=== PATIENT | female | born 1930 | race Caucasian/White ===

== ENCOUNTER 2017-03-15 18:47 | Emergency (ER) | payer MEDICARE ==
[~2017-03-15] VITALS: Ht 152.4 cm; Wt 51.0 kg
[~2017-03-15 18:47] MED LIST: ACET325T14 PO; ACIPHEX PO; ASPI-496 PO; ASPI325T4 PO; ATEN-104 PO; BUSP10TA PO; CELE200C PO; CELEBREX PO; CHILDRENS BENADRYL PO; CLON0.1T12 PO; DIAZ2TAB PO; DIAZ2TAB3 PO; DIPH1TAB; DIPH1TAB PO; DOCU-30 PO; ESTR1.25; ESTR1.25 PO; FLUT9.9S NS; HYDR-3138 PO; HYDR-3240 PO; HYDR-3341 PO; HYDR-3342 PO; HYDR12.53 PO; HYDR25TA6 PO; LACT1CAP37 PO; LISI-167 PO; LISI-170 PO; LORA10TA3 PO; MULT-717 PO; PHEN51GE TP; PHYT100T PO; RABE20TA5 PO; TYLENOL PO; VITAMIN B12 IM
[2017-03-15] MEDS ORDERED: SODIUM CHLORIDE FLUSH 10ML SYR IVF ONE (19:00)
[2017-03-15] MEDS ORDERED: PROPOFOL 10 MG/ML, 20ML ONE (20:18)
[2017-03-15] MEDS ORDERED: PROPOFOL 10 MG/ML, 20ML IVPush ONE (21:00)
[2017-03-15 22:49] VITALS: BP 142/64
== END 2017-03-15 22:51 | disposition home or self-care (01) ==
LOC: ED 21:35
DX: S73.015A Posterior dislocation of left hip, initial encounter (principal); S61.411A Laceration without foreign body of right hand, initial encounter; I10 Essential (primary) hypertension; W01.0XXA Fall on same level from slipping, tripping and stumbling without subsequent striking against object, initial encounter; Y93.89 Activity, other specified; Y92.89 Other specified places as the place of occurrence of the external cause; Y99.9 Unspecified external cause status
CPT/HCPCS: 27250; 72170; 99152; 99153

== ENCOUNTER → 2017-06-04 | Outpatient (CLI) | payer MEDICARE ==
[~2017-06-04] MED LIST changes: +ASPI325T17 PO; -ASPI325T4 PO; +DOCU-131 PO; -DOCU-30 PO; -HYDR-3138 PO; +HYDR-3237 PO; +RABE20TA18 PO; -RABE20TA5 PO
== END | disposition home or self-care (01) ==
LOC: RAD 11:41
PROVIDERS: ATTEND Specialist
DX: R05 Cough (principal)
CPT/HCPCS: 71020

== ENCOUNTER 2017-09-07 05:51 | Inpatient (IN) | payer MEDICARE ==
[~2017-09-07] VITALS: Ht 149.9 cm; Wt 60.0 kg
[2017-09-07] MEDS ORDERED: LOSA25TA5 PO (06:05)
[2017-09-07] MEDS ORDERED: METO25TA35 PO (06:05)
[2017-09-07] MEDS ORDERED: SODIUM CHLORIDE FLUSH 10ML SYR IVF ONE (06:30)
[2017-09-07] MEDS ORDERED: ONDANSETRON 2MG/ML, 2ML IVPush ONE (06:30)
[2017-09-07] MEDS ORDERED: HYDROmorphone 1 MG/ML, 1ML IVPush PRN (06:30)
[2017-09-07] MEDS ORDERED: SODIUM CHLORIDE 0.9% 1,000ML IVBOLUS ONE (06:30)
[2017-09-07] MEDS ORDERED: HYDROmorphone 2 MG/ML, 1ML ONE (06:49)
[2017-09-07] MEDS ORDERED: ONDANSETRON 2MG/ML, 2ML ONE (06:49)
[2017-09-07 06:53] LABS: ALBUMIN 2.9 g/dL (3.4-5.0); ANION GAP 10 mmol/L (5-15); CALCIUM 8.4 mg/dL (8.5-10.1); CHLORIDE 109 mmol/L (98-107); CREATININE 1.39 mg/dL (0.55-1.02)
[2017-09-07 06:54] LABS: BASOPHILS # (AUTO) 0.03 x10^3/uL (0-0.1); BASOPHILS % (AUTO) 0 % (0-1); EOSINOPHILS # (AUTO) 0.41 x10^3/uL (0-0.4); EOSINOPHILS % (AUTO) 4 % (1-7); LYMPHOCYTES # (AUTO) 1.38 x10^3/uL (1-3.4); LYMPHOCYTES % (AUTO) 14 % (22-44); MD NO; MEAN CORPUSCULAR HEMOGLOBIN 30.9 pg (27.0-34.8); MEAN CORPUSCULAR HGB CONC 33.6 g/dL (32.4-35.8); MEAN CORPUSCULAR VOLUME 91.9 fL (80-100); MEAN PLATELET VOLUME 8.5 fL (7.4-10.4); MONOCYTES # (AUTO) 0.92 x10^3/uL (0.2-0.8); MONOCYTES % (AUTO) 9 % (2-9); NEUTROPHILS # (AUTO) 7.48 x10^3/uL (1.8-6.8); NEUTROPHILS % (AUTO) 73 % (42-75); PLATELET COUNT 417 x10^3/uL (130-400); RED CELL DISTRIBUTION WIDTH 13.8 % (9.6-15.2)
[2017-09-07] MEDS ORDERED: PROPOFOL 10 MG/ML, 20ML IVPush ONE (07:00)
[2017-09-07] MEDS ORDERED: PROPOFOL 10 MG/ML, 20ML ONE (07:14)
[2017-09-07] MEDS ORDERED: MORPHINE SULFATE 4 MG/ML, 1ML ONE (07:38)
[2017-09-07 11:28] LABS: CULTURE INDICATED? YES; MICROSCOPIC INDICATED
[2017-09-07] MEDS ORDERED: LOVA10TA PO (14:35)
[2017-09-07] MEDS: SODIUM CHLORIDE 0.9% 1,000 ML IV SCH (14:38)
[2017-09-07] MEDS ORDERED: ONDANSETRON 2MG/ML, 2ML IVPush PRN (15:00)
[2017-09-07] MEDS ORDERED: ONDANSETRON ODT 4 MG PO PRN (15:00)
[2017-09-07] MEDS ORDERED: DIPHENOXYLATE/ATROPINE TABLET PO PRN (15:00)
[2017-09-07] MEDS ORDERED: ACETAMINOPHEN 325 MG TABLET PO PRN (15:00)
[2017-09-07] MEDS ORDERED: FLUTICASONE NASAL SPRAY 16GM NAS SCH (18:30)
[2017-09-07] MEDS: SIMVASTATIN 5 MG TABLET PO SCH (20:44)
[2017-09-07] MEDS: LISINOPRIL 20 MG TABLET PO SCH (20:45)
[2017-09-07] MEDS: METOPROLOL TARTRATE 25 MG TABLET PO SCH (20:45)
[2017-09-07 21:00] VITALS: BP 160/52
[2017-09-07] MEDS ORDERED: DIPHENHYDRAMINE 12.5MG/5ML, 10ML UDC PO PRN (22:00)
[2017-09-08] MEDS ORDERED: hydrALAzine 20 MG/ML, 1ML ONE ×2 (02:12→17:47)
[2017-09-08] MEDS ORDERED: hydrALAzine 20 MG/ML, 1ML IV ONE (02:30)
[2017-09-08 02:59] VITALS: BP 178/60
[2017-09-08 05:53] LABS: INTERNATIONAL NORMALIZED RATIO 0.95 (0.93-1.1); PROTHROMBIN TIME 9.9 Seconds (9.6-11.5)
[2017-09-08 05:59] LABS: BASOPHILS # (AUTO) 0.07 x10^3/uL (0-0.1); BASOPHILS % (AUTO) 1 % (0-1); EOSINOPHILS # (AUTO) 0.36 x10^3/uL (0-0.4); EOSINOPHILS % (AUTO) 4 % (1-7); LYMPHOCYTES # (AUTO) 1.53 x10^3/uL (1-3.4); LYMPHOCYTES % (AUTO) 19 % (22-44); MD NO; MEAN CORPUSCULAR HEMOGLOBIN 31.2 pg (27.0-34.8); MEAN CORPUSCULAR HGB CONC 33.7 g/dL (32.4-35.8); MEAN CORPUSCULAR VOLUME 92.6 fL (80-100); MEAN PLATELET VOLUME 8.1 fL (7.4-10.4); MONOCYTES # (AUTO) 0.77 x10^3/uL (0.2-0.8); MONOCYTES % (AUTO) 9 % (2-9); NEUTROPHILS # (AUTO) 5.47 x10^3/uL (1.8-6.8); NEUTROPHILS % (AUTO) 67 % (42-75); PLATELET COUNT 374 x10^3/uL (130-400); RED BLOOD COUNT 2.88 x10^6/uL (3.82-5.3); RED CELL DISTRIBUTION WIDTH 13.7 % (9.6-15.2)
[2017-09-08 06:03] LABS: CHLORIDE 113 mmol/L (98-107)
[2017-09-08 06:21] LABS: ALANINE AMINOTRANSFERASE 10 U/L (12-78); ALBUMIN 2.3 g/dL (3.4-5.0); ALKALINE PHOSPHATASE 79 U/L (45-117); ANION GAP 7 mmol/L (5-15); BILIRUBIN,TOTAL 0.2 mg/dL (0.2-1.0); CALCIUM 7.9 mg/dL (8.5-10.1); CREATININE 1.15 mg/dL (0.55-1.02); TOTAL PROTEIN 5.9 g/dL (6.4-8.2)
[2017-09-08 06:48] VITALS: BP 176/79
[2017-09-08] MEDS: LISINOPRIL 20 MG TABLET PO SCH (08:54)
[2017-09-08] MEDS: METOPROLOL TARTRATE 25 MG TABLET PO SCH ×2 (08:54→21:38)
[2017-09-08] MEDS ORDERED: DIAZEPAM 2 MG TABLET PO SCH (09:00)
[2017-09-08] MEDS ORDERED: ESTROGENS CONJUGATED 0.625 MG TABLET PO SCH (09:00)
[2017-09-08] MEDS ORDERED: HYDROCHLOROTHIAZIDE 25 MG TABLET PO SCH (09:00)
[2017-09-08 12:20] VITALS: BP 152/73
[2017-09-08] MEDS ORDERED: DIPHENHYDRAMINE 50 MG/ML, 1ML IVPush ONE (13:00)
[2017-09-08] MEDS ORDERED: TRANEXAMIC ACID 100 MG/ML, 10ML ONE ×2 (13:33)
[2017-09-08] MEDS ORDERED: KETOROLAC 60 MG/2 ML ONE (13:33)
[2017-09-08] MEDS ORDERED: SODIUM CHLORIDE 0.9% 100 ML ONE (13:34)
[2017-09-08] MEDS ORDERED: EPINEPHRINE 1 MG/ML, 1ML ONE (13:34)
[2017-09-08] MEDS ORDERED: ROPIvacaine/PF 0.2%, 20 ML ONE (13:34)
[2017-09-08] MEDS ORDERED: FENTANYL PF 100 MCG/2ML ONE ×3 (13:56→17:11)
[2017-09-08] MEDS ORDERED: CEFAZOLIN 1,000 MG ONE (13:59)
[2017-09-08] MEDS ORDERED: GLYCOPYRROLATE 0.2MG/1ML, 5ML ONE (13:59)
[2017-09-08] MEDS ORDERED: ROCURONIUM 10 MG/ML,10ML ONE (13:59)
[2017-09-08] MEDS ORDERED: SUCCINYLCHOLINE 20 MG/ML, 10ML ONE (13:59)
[2017-09-08] MEDS ORDERED: NEOSTIGMINE 1 MG/ML, 10ML ONE (13:59)
[2017-09-08] MEDS ORDERED: DEXAMETHASONE 4 MG/ML, 1ML ONE (13:59)
[2017-09-08] MEDS ORDERED: PROPOFOL 10 MG/ML, 20ML ONE (13:59)
[2017-09-08] MEDS ORDERED: ONDANSETRON 2MG/ML, 2ML ONE (13:59)
[2017-09-08] MEDS ORDERED: ONDANSETRON 2MG/ML, 2ML IV PRN (15:00)
[2017-09-08] MEDS ORDERED: BISACODYL 10 MG SUPP PR PRN (15:00)
[2017-09-08] MEDS ORDERED: MAGNESIUM HYDROXIDE 8%, 30ML UDC PO PRN (15:00)
[2017-09-08] MEDS ORDERED: PROMETHAZINE 25 MG/ML, 1ML IM PRN (15:00)
[2017-09-08] MEDS ORDERED: DIPHENHYDRAMINE 50 MG CAPSULE PO PRN (15:00)
[2017-09-08] MEDS ORDERED: OXYcodone IR 5MG TABLET PO PRN (15:00)
[2017-09-08] MEDS ORDERED: HYDROmorphone 1 MG/ML, 1ML IV PRN ×2 (15:00→16:00)
[2017-09-08] MEDS ORDERED: ALUMINUM/MAG/SIMETHICONE 30 ML UDC PO PRN (15:00)
[2017-09-08] MEDS ORDERED: LORazepam 1MG TABLET PO PRN (15:00)
[2017-09-08] MEDS ORDERED: ONDANSETRON 4 MG TABLET PO PRN (15:00)
[2017-09-08] MEDS ORDERED: PROMETHAZINE 12.5 MG SUPP PR PRN (15:00)
[2017-09-08] MEDS ORDERED: SENNA/DOCUSATE TABLET PO PRN (15:00)
[2017-09-08] MEDS ORDERED: ALBUTEROL SULFATE 2.5 MG/3 ML NPPB PRN (16:00)
[2017-09-08] MEDS ORDERED: DIAZEPAM 5 MG/ML, 2ML IVPush PRN (16:00)
[2017-09-08] MEDS ORDERED: HYDROcodone/APAP 7.5-325MG/15ML UDC PO PRN (16:00)
[2017-09-08] MEDS ORDERED: MIDAZOLAM 1 MG/ML, 2ML IV PRN (16:00)
[2017-09-08] MEDS ORDERED: hydrALAzine 20 MG/ML, 1ML IV PRN (16:00)
[2017-09-08] MEDS ORDERED: ONDANSETRON 2MG/ML, 2ML IVPush PRN (16:00)
[2017-09-08] MEDS ORDERED: METOPROLOL 1 MG/ML, 5ML IV PRN (16:00)
[2017-09-08] MEDS ORDERED: LABETALOL 5MG/ML, 20ML IV PRN (16:00)
[2017-09-08] MEDS ORDERED: EPHEDRINE 50 MG/ML, 1ML IVPush PRN (16:00)
[2017-09-08] MEDS ORDERED: ACETAMINOPHEN 325 MG TABLET PO PRN (16:00)
[2017-09-08] MEDS ORDERED: PROMETHAZINE 25 MG/ML, 1ML IV PRN (16:00)
[2017-09-08] MEDS ORDERED: OXYcodone 5 MG/5 ML ORAL.SOL UDC ONE (17:11)
[2017-09-08] MEDS: FENTANYL PF 100 MCG/2ML IV PRN ×3 (17:26→18:16)
[2017-09-08] MEDS: OXYcodone 5 MG/5 ML ORAL.SOL UDC PO PRN ×2 (17:26→18:16)
[2017-09-08] MEDS ORDERED: TRANEXAMIC ACID 1,000 MG in SODIUM CHLORIDE 0.9% 100 ML IVPB ONE (17:30)
[2017-09-08] MEDS: SODIUM CHLORIDE 0.9% 1,000 ML IV SCH (17:48)
[2017-09-08] MEDS: D5%-0.45% NACL 1,000 ML IV SCH (18:36)
[2017-09-08 18:42] VITALS: BP 162/70
[2017-09-08] MEDS: DOCUSATE 100 MG CAPSULE PO SCH (21:37)
[2017-09-08] MEDS: SIMVASTATIN 5 MG TABLET PO SCH (21:38)
[2017-09-08] MEDS: ACETAMINOPHEN 325 MG TABLET PO PRN (21:39)
[2017-09-08] MEDS: CEFAZOLIN PMX 1GM/50ML 50 ML IVPB SCH (22:54)
[2017-09-09 00:02] VITALS: BP 150/71
[2017-09-09] MEDS: CEFAZOLIN PMX 1GM/50ML 50 ML IVPB SCH (01:00)
[2017-09-09 03:01] VITALS: BP 152/70
[2017-09-09 06:11] LABS: CALCIUM 7.2 mg/dL (8.5-10.1); CHLORIDE 112 mmol/L (98-107)
[2017-09-09 06:14] LABS: ALBUMIN 2.1 g/dL (3.4-5.0); ANION GAP 11 mmol/L (5-15); CREATININE 1.48 mg/dL (0.55-1.02)
[2017-09-09] MEDS: ASPIRIN 81 MG TABLET EC PO SCH (06:28)
[2017-09-09] MEDS: D5%-0.45% NACL 1,000 ML IV SCH ×2 (06:37→17:33)
[2017-09-09] MEDS ORDERED: CEFAZOLIN PMX 1GM/50ML 50 ML IVPB SCH (07:00)
[2017-09-09 07:57] VITALS: BP_SYST 194; BP_SYST 201; BP_DIAS 69; BP_DIAS 75
[2017-09-09] MEDS: DOCUSATE 100 MG CAPSULE PO SCH ×2 (08:22→21:12)
[2017-09-09] MEDS: METOPROLOL TARTRATE 25 MG TABLET PO SCH ×2 (08:22→21:13)
[2017-09-09] MEDS: HYDROCHLOROTHIAZIDE 25 MG TABLET PO SCH (08:23)
[2017-09-09] MEDS ORDERED: DIAZEPAM 2 MG TABLET PO PRN (09:00)
[2017-09-09 09:38] VITALS: BP 191/67
[2017-09-09] MEDS: LISINOPRIL 20 MG TABLET PO SCH ×2 (09:39→21:13)
[2017-09-09 12:12] VITALS: BP 170/69
[2017-09-09 19:53] VITALS: BP 137/72
[2017-09-09] MEDS: ACETAMINOPHEN 325 MG TABLET PO PRN (21:12)
[2017-09-09] MEDS: SIMVASTATIN 5 MG TABLET PO SCH (21:13)
[2017-09-10] MEDS ORDERED: ACETAMINOPHEN 325 MG TABLET PO PRN (03:30)
[2017-09-10 04:11] VITALS: BP 181/76
[2017-09-10] MEDS: D5%-0.45% NACL 1,000 ML IV SCH (04:51)
[2017-09-10] MEDS: ASPIRIN 81 MG TABLET EC PO SCH (06:00)
[2017-09-10 06:39] VITALS: BP 197/81
[2017-09-10] MEDS: HYDROCHLOROTHIAZIDE 25 MG TABLET PO SCH (08:58)
[2017-09-10] MEDS: METOPROLOL TARTRATE 25 MG TABLET PO SCH (08:58)
[2017-09-10] MEDS: DOCUSATE 100 MG CAPSULE PO SCH (08:59)
[2017-09-10] MEDS: LISINOPRIL 20 MG TABLET PO SCH (08:59)
[2017-09-10] MEDS ORDERED: LISINOPRIL 20 MG TABLET PO SCH (09:00)
[2017-09-10] MEDS ORDERED: DIPHENHYDRAMINE 25 MG CAPSULE ONE (10:40)
[2017-09-10 12:39] VITALS: BP 161/76
[2017-09-10] MEDS ORDERED: ACET325T14 PO (12:57)
[2017-09-10] MEDS ORDERED: ASPI-621 PO (12:57)
[2017-09-10] MEDS ORDERED: DOCU-131 PO (12:57)
[2017-09-10] MEDS ORDERED: CELE200C PO (12:57)
== END 2017-09-10 15:52 | disposition home or self-care (01) | DRG 467 ==
LOC: ED 07:57 → EDIP 12:08 → 4NOR 18:18
PROVIDERS: ADMIT Family Medicine; ATTEND Family Medicine
PROC: 0T9B70Z Drainage of Bladder with Drainage Device, Via Natural or Artificial Opening (ICD-10-PCS; 2017-09-07)
PROC: 0SPB0JZ Removal of Synthetic Substitute from Left Hip Joint, Open Approach (ICD-10-PCS; 2017-09-08)
PROC: 0SRB0J9 Replacement of Left Hip Joint with Synthetic Substitute, Cemented, Open Approach (ICD-10-PCS; principal; 2017-09-08 14:30)
DX: T84.021A Dislocation of internal left hip prosthesis, initial encounter (principal); E44.1 Mild protein-calorie malnutrition; D64.9 Anemia, unspecified; I13.10 Hypertensive heart and chronic kidney disease without heart failure, with stage 1 through stage 4 chronic kidney disease, or unspecified chronic kidney disease; D72.829 Elevated white blood cell count, unspecified; E78.5 Hyperlipidemia, unspecified; Z96.641 Presence of right artificial hip joint; G89.29 Other chronic pain; K58.9 Irritable bowel syndrome, unspecified; N18.9 Chronic kidney disease, unspecified; Y79.2 Prosthetic and other implants, materials and accessory orthopedic devices associated with adverse incidents; Z79.82 Long term (current) use of aspirin; Z82.49 Family history of ischemic heart disease and other diseases of the circulatory system; Z87.81 Personal history of (healed) traumatic fracture; Z87.891 Personal history of nicotine dependence; Z90.710 Acquired absence of both cervix and uterus; Z68.26 Body mass index [BMI] 26.0-26.9, adult; Z88.2 Allergy status to sulfonamides
CPT/HCPCS: 36415; 71045; 80048; 80053; 81001; 82040; 85018; 85025; 85610; 87077; 87086; 87106; 87186; 93005; C1713; J0171; J0690; J1100; J1170; J1885; J2405; J2704; J2710; J2795; J3010; J3490; C1776; J0330; J0360; J1200; J7030

== ENCOUNTER 2017-11-27 09:29 | Inpatient (IN) | payer MEDICARE ==
[~2017-11-27] VITALS: Ht 152.4 cm; Wt 52.5 kg
[2017-11-27] VITALS (9 sets, daily range): BP systolic 106–220; BP diastolic 45–69
[~2017-11-27 09:29] MED LIST changes: +ASPI-621 PO; +LOSA25TA5 PO; +LOVA10TA PO; +METO25TA35 PO
[2017-11-27] MEDS ORDERED: hydrALAzine 20 MG/ML, 1ML IV ONE (10:00)
[2017-11-27] MEDS ORDERED: SODIUM CHLORIDE FLUSH 10ML SYR IVF ONE (10:00)
[2017-11-27] MEDS ORDERED: RABE20TA18 MT (10:04)
[2017-11-27 10:13] LABS: BASOPHILS # (AUTO) 0.12 x10^3/uL (0-0.1); BASOPHILS % (AUTO) 1 % (0-1); EOSINOPHILS # (AUTO) 0.27 x10^3/uL (0-0.4); EOSINOPHILS % (AUTO) 2 % (1-7); LYMPHOCYTES # (AUTO) 1.89 x10^3/uL (1-3.4); LYMPHOCYTES % (AUTO) 15 % (22-44); MD NO; MEAN CORPUSCULAR HEMOGLOBIN 29.7 pg (27.0-34.8); MEAN CORPUSCULAR HGB CONC 32.6 g/dL (32.4-35.8); MEAN CORPUSCULAR VOLUME 91.3 fL (80-100); MEAN PLATELET VOLUME 9.1 fL (7.4-10.4); MONOCYTES # (AUTO) 1.04 x10^3/uL (0.2-0.8); MONOCYTES % (AUTO) 8 % (2-9); NEUTROPHILS # (AUTO) 9.74 x10^3/uL (1.8-6.8); NEUTROPHILS % (AUTO) 75 % (42-75); PLATELET COUNT 539 x10^3/uL (130-400); RED BLOOD COUNT 4.19 x10^6/uL (3.82-5.3); RED CELL DISTRIBUTION WIDTH 14.4 % (9.6-15.2)
[2017-11-27 10:22] LABS: INTERNATIONAL NORMALIZED RATIO 1.01 (0.93-1.1); PROTHROMBIN TIME 10.5 Seconds (9.6-11.5)
[2017-11-27 10:26] LABS: ALANINE AMINOTRANSFERASE 14 U/L (12-78); ALBUMIN 3.9 g/dL (3.4-5.0); ANION GAP 12 mmol/L (5-15); CALCIUM 9.3 mg/dL (8.5-10.1); CHLORIDE 105 mmol/L (98-107); CREATININE 1.84 mg/dL (0.55-1.02)
[2017-11-27 10:30] LABS: ALKALINE PHOSPHATASE 78 U/L (45-117); BILIRUBIN,TOTAL 0.4 mg/dL (0.2-1.0); TOTAL PROTEIN 8.2 g/dL (6.4-8.2); TROPONIN I < 0.015 ng/mL (0.000-0.045)
[2017-11-27] MEDS ORDERED: SODIUM CHLORIDE 0.9% 1,000 ML IV SCH (13:40)
[2017-11-27] MEDS ORDERED: DOCUSATE 100 MG CAPSULE PO PRN (14:00)
[2017-11-27] MEDS ORDERED: FLUTICASONE NASAL SPRAY 16GM NAS PRN (14:00)
[2017-11-27] MEDS ORDERED: ONDANSETRON ODT 4 MG PO PRN (14:00)
[2017-11-27] MEDS: HEPARIN 5,000 UNITS/ML, 1ML SQ SCH ×2 (14:39→22:06)
[2017-11-27 16:41] LABS: TROPONIN I < 0.015 ng/mL (0.000-0.045)
[2017-11-27] MEDS: hydrALAzine 20 MG/ML, 1ML IVPush PRN (18:38)
[2017-11-27] MEDS: LOVASTATIN 10 MG TABLET PO SCH (21:53)
[2017-11-27] MEDS: LISINOPRIL 20 MG TABLET PO SCH (22:07)
[2017-11-27 22:34] LABS: TROPONIN I < 0.015 ng/mL (0.000-0.045)
[2017-11-28] VITALS (9 sets, daily range): BP systolic 119–230; BP diastolic 46–65
[2017-11-28] MEDS: ASPIRIN 325 MG TABLET EC PO SCH (04:52)
[2017-11-28] MEDS: HEPARIN 5,000 UNITS/ML, 1ML SQ SCH ×3 (04:52→21:44)
[2017-11-28 05:39] LABS: ANION GAP 10 mmol/L (5-15); CALCIUM 8.2 mg/dL (8.5-10.1); CHLORIDE 110 mmol/L (98-107)
[2017-11-28 05:41] LABS: CREATININE 1.62 mg/dL (0.55-1.02)
[2017-11-28 05:54] LABS: BASOPHILS # (AUTO) 0.12 x10^3/uL (0-0.1); BASOPHILS % (AUTO) 2 % (0-1); EOSINOPHILS # (AUTO) 0.62 x10^3/uL (0-0.4); EOSINOPHILS % (AUTO) 8 % (1-7); LYMPHOCYTES # (AUTO) 2.09 x10^3/uL (1-3.4); LYMPHOCYTES % (AUTO) 27 % (22-44); MD NO; MEAN CORPUSCULAR HEMOGLOBIN 30.7 pg (27.0-34.8); MEAN CORPUSCULAR HGB CONC 33.3 g/dL (32.4-35.8); MEAN CORPUSCULAR VOLUME 92.2 fL (80-100); MEAN PLATELET VOLUME 9.1 fL (7.4-10.4); MONOCYTES # (AUTO) 0.82 x10^3/uL (0.2-0.8); MONOCYTES % (AUTO) 11 % (2-9); NEUTROPHILS # (AUTO) 3.98 x10^3/uL (1.8-6.8); NEUTROPHILS % (AUTO) 52 % (42-75); PLATELET COUNT 366 x10^3/uL (130-400); RED BLOOD COUNT 3.44 x10^6/uL (3.82-5.3); RED CELL DISTRIBUTION WIDTH 14.5 % (9.6-15.2)
[2017-11-28] MEDS: PANTOPROZOLE 40MG TABLET PO SCH (07:55)
[2017-11-28] MEDS: LISINOPRIL 20 MG TABLET PO SCH ×2 (07:55→21:43)
[2017-11-28] MEDS: hydrALAzine 20 MG/ML, 1ML IVPush PRN ×2 (10:49→18:31)
[2017-11-28] MEDS: ENALAPRILAT 1.25 MG/ML, 2ML IV PRN (15:41)
[2017-11-28] MEDS: LOVASTATIN 10 MG TABLET PO SCH (21:43)
[2017-11-28] MEDS: ACETAMINOPHEN 325 MG TABLET PO PRN (21:52)
[2017-11-29 01:40] VITALS: BP 129/55
[2017-11-29] MEDS: ACETAMINOPHEN 325 MG TABLET PO PRN ×2 (03:06→21:20)
[2017-11-29 05:37] LABS: BASOPHILS % (AUTO) 1 % (0-1); EOSINOPHILS # (AUTO) 0.24 x10^3/uL (0-0.4); EOSINOPHILS % (AUTO) 3 % (1-7); INTERNATIONAL NORMALIZED RATIO 1.02 (0.93-1.1); LYMPHOCYTES # (AUTO) 1.63 x10^3/uL (1-3.4); LYMPHOCYTES % (AUTO) 21 % (22-44); MD NO; MEAN CORPUSCULAR VOLUME 90.9 fL (80-100); MEAN PLATELET VOLUME 9.1 fL (7.4-10.4); MONOCYTES # (AUTO) 0.91 x10^3/uL (0.2-0.8); MONOCYTES % (AUTO) 12 % (2-9); NEUTROPHILS # (AUTO) 5.05 x10^3/uL (1.8-6.8); NEUTROPHILS % (AUTO) 64 % (42-75); PLATELET COUNT 430 x10^3/uL (130-400); PROTHROMBIN TIME 10.5 Seconds (9.6-11.5); RED BLOOD COUNT 3.84 x10^6/uL (3.82-5.3); RED CELL DISTRIBUTION WIDTH 14.5 % (9.6-15.2)
[2017-11-29 05:45] LABS: CHLORIDE 110 mmol/L (98-107)
[2017-11-29 05:54] LABS: ANION GAP 13 mmol/L (5-15); CALCIUM 8.2 mg/dL (8.5-10.1); CREATININE 1.92 mg/dL (0.55-1.02)
[2017-11-29] MEDS: ASPIRIN 325 MG TABLET EC PO SCH (05:55)
[2017-11-29 07:40] VITALS: BP 222/64
[2017-11-29] MEDS: PANTOPROZOLE 40MG TABLET PO SCH (08:03)
[2017-11-29] MEDS: LISINOPRIL 20 MG TABLET PO SCH (08:03)
[2017-11-29] MEDS: HEPARIN 5,000 UNITS/ML, 1ML SQ SCH (08:05)
[2017-11-29] MEDS ORDERED: AMLODIPINE 5 MG TABLET PO SCH (09:00)
[2017-11-29] MEDS ORDERED: CEFAZOLIN PMX 1GM/50ML 50 ML IVPB ONE (09:00)
[2017-11-29 11:05] VITALS: BP 153/51
[2017-11-29 14:16] VITALS: BP 143/51
[2017-11-29] MEDS ORDERED: BISACODYL 10 MG SUPP PR PRN (16:00)
[2017-11-29] MEDS ORDERED: SODIUM CHLORIDE 0.9% 500 ML IV SCH (16:30)
[2017-11-29 21:19] VITALS: BP 202/45
[2017-11-29] MEDS: LOVASTATIN 10 MG TABLET PO SCH (21:20)
[2017-11-29 22:56] VITALS: BP 93/45
[2017-11-30 01:28] VITALS: BP 158/60
[2017-11-30] MEDS: ACETAMINOPHEN 325 MG TABLET PO PRN (04:37)
[2017-11-30 04:54] LABS: MEAN CORPUSCULAR HEMOGLOBIN 29.9 pg (27.0-34.8); MEAN CORPUSCULAR HGB CONC 32.7 g/dL (32.4-35.8); MEAN CORPUSCULAR VOLUME 91.5 fL (80-100); PLATELET COUNT 356 x10^3/uL (130-400); RED BLOOD COUNT 3.36 x10^6/uL (3.82-5.3); RED CELL DISTRIBUTION WIDTH 14.8 % (9.6-15.2)
[2017-11-30 04:55] LABS: INTERNATIONAL NORMALIZED RATIO 1.04 (0.93-1.1); PROTHROMBIN TIME 10.7 Seconds (9.6-11.5)
[2017-11-30 05:01] LABS: ANION GAP 10 mmol/L (5-15); CALCIUM 7.9 mg/dL (8.5-10.1); CHLORIDE 109 mmol/L (98-107); CREATININE 1.92 mg/dL (0.55-1.02)
[2017-11-30 05:14] LABS: BASOPHILS # (AUTO) 0.08 x10^3/uL (0-0.1); BASOPHILS % (AUTO) 2 % (0-1); EOSINOPHILS # (AUTO) 0.57 x10^3/uL (0-0.4); EOSINOPHILS % (AUTO) 10 % (1-7); LYMPHOCYTES % (AUTO) 26 % (22-44); MD SCAN; MONOCYTES # (AUTO) 0.76 x10^3/uL (0.2-0.8); MONOCYTES % (AUTO) 13 % (2-9); NEUTROPHILS # (AUTO) 2.77 x10^3/uL (1.8-6.8); NEUTROPHILS % (AUTO) 49 % (42-75)
[2017-11-30] MEDS ORDERED: SODIUM CHLORIDE 0.9% 1,000 ML IV SCH ×2 (06:00→13:00)
[2017-11-30] MEDS: ASPIRIN 325 MG TABLET EC PO SCH (06:14)
[2017-11-30 09:05] VITALS: BP 219/67
[2017-11-30] MEDS ORDERED: MIDAZOLAM 1 MG/ML, 5ML ONE (09:18)
[2017-11-30] MEDS ORDERED: FENTANYL PF 100 MCG/2ML ONE (09:18)
[2017-11-30] MEDS ORDERED: VANCOMYCIN PMX 1GM/200ML 200 ML ONE (09:19)
[2017-11-30] MEDS ORDERED: VANCOMYCIN 500 MG ONE (09:19)
[2017-11-30] MEDS ORDERED: LIDOCAINE-MPF 2% ,5ML ONE (09:19)
[2017-11-30] MEDS: PANTOPROZOLE 40MG TABLET PO SCH (09:21)
[2017-11-30] MEDS ORDERED: ACETAMINOPHEN 325 MG TABLET PO PRN (11:00)
[2017-11-30 14:00] VITALS: BP 104/53
[2017-11-30] MEDS: CEFAZOLIN PMX 1GM/50ML 50 ML IVPB SCH (17:05)
[2017-11-30] MEDS: ENALAPRILAT 1.25 MG/ML, 2ML IV PRN (18:53)
[2017-11-30 20:30] VITALS: BP 187/71
[2017-11-30 21:18] VITALS: BP 171/74
[2017-11-30] MEDS: LOVASTATIN 10 MG TABLET PO SCH (21:19)
[2017-11-30] MEDS: SODIUM CHLORIDE FLUSH 10ML SYR IVF SCH (21:20)
[2017-12-01 01:10] VITALS: BP 181/77
[2017-12-01] MEDS: CEFAZOLIN PMX 1GM/50ML 50 ML IVPB SCH (01:21)
[2017-12-01] MEDS: hydrALAzine 20 MG/ML, 1ML IVPush PRN (01:26)
[2017-12-01 02:30] VITALS: BP 168/74
[2017-12-01] MEDS: ASPIRIN 325 MG TABLET EC PO SCH (04:46)
[2017-12-01 05:28] LABS: CHLORIDE 110 mmol/L (98-107)
[2017-12-01 05:30] LABS: MEAN CORPUSCULAR HEMOGLOBIN 30.2 pg (27.0-34.8); MEAN CORPUSCULAR VOLUME 91.5 fL (80-100); RED BLOOD COUNT 4.12 x10^6/uL (3.82-5.3); RED CELL DISTRIBUTION WIDTH 14.9 % (9.6-15.2)
[2017-12-01 05:34] LABS: ANION GAP 12 mmol/L (5-15); CREATININE 1.67 mg/dL (0.55-1.02)
[2017-12-01 06:50] LABS: BASOPHILS # (AUTO) 0.15 x10^3/uL (0-0.1); BASOPHILS % (AUTO) 1 % (0-1); EOSINOPHILS # (AUTO) 0.63 x10^3/uL (0-0.4); EOSINOPHILS % (AUTO) 6 % (1-7); LYMPHOCYTES # (AUTO) 2.15 x10^3/uL (1-3.4); LYMPHOCYTES % (AUTO) 19 % (22-44); MD SCAN; MEAN PLATELET VOLUME 9.2 fL (7.4-10.4); MONOCYTES # (AUTO) 1.48 x10^3/uL (0.2-0.8); MONOCYTES % (AUTO) 13 % (2-9); NEUTROPHILS # (AUTO) 6.95 x10^3/uL (1.8-6.8); NEUTROPHILS % (AUTO) 61 % (42-75); PLATELET COUNT 497 x10^3/uL (130-400)
[2017-12-01 07:54] VITALS: BP 168/53
[2017-12-01] MEDS ORDERED: DIGOXIN 0.25 MG/ML, 2ML IVPush ONE (08:30)
[2017-12-01] MEDS ORDERED: METOPROLOL TARTRATE 50 MG TABLET PO SCH (08:30)
[2017-12-01] MEDS: PANTOPROZOLE 40MG TABLET PO SCH (09:01)
[2017-12-01] MEDS: SODIUM CHLORIDE FLUSH 10ML SYR IVF SCH (09:02)
[2017-12-01] MEDS ORDERED: DIAZEPAM 2 MG TABLET PO ONE (10:30)
[2017-12-01 13:43] VITALS: BP 192/69
[2017-12-01 15:08] VITALS: BP 184/73
== END 2017-12-01 15:30 | disposition home or self-care (01) | DRG 242 ==
LOC: ED 11:12 → 5SO 11:13 → ED 11:27
PROVIDERS: ADMIT Hospitalist; ATTEND Hospitalist
PROC: 0JH606Z Insertion of Pacemaker, Dual Chamber into Chest Subcutaneous Tissue and Fascia, Open Approach (ICD-10-PCS; principal; 2017-11-27)
PROC: 02H63JZ Insertion of Pacemaker Lead into Right Atrium, Percutaneous Approach (ICD-10-PCS; 2017-11-27)
PROC: 02HK3JZ Insertion of Pacemaker Lead into Right Ventricle, Percutaneous Approach (ICD-10-PCS; 2017-11-27)
DX: I44.2 Atrioventricular block, complete (principal); N17.0 Acute kidney failure with tubular necrosis; I13.10 Hypertensive heart and chronic kidney disease without heart failure, with stage 1 through stage 4 chronic kidney disease, or unspecified chronic kidney disease; N18.3 Chronic kidney disease, stage 3 (moderate); D72.829 Elevated white blood cell count, unspecified; K21.9 Gastro-esophageal reflux disease without esophagitis; J30.9 Allergic rhinitis, unspecified; K58.9 Irritable bowel syndrome, unspecified; E78.00 Pure hypercholesterolemia, unspecified; E78.5 Hyperlipidemia, unspecified; R79.89 Other specified abnormal findings of blood chemistry; Z60.2 Problems related to living alone; E86.0 Dehydration; Z96.649 Presence of unspecified artificial hip joint; Z66 Do not resuscitate; F91.8 Other conduct disorders; I35.1 Nonrheumatic aortic (valve) insufficiency; K62.3 Rectal prolapse; N81.10 Cystocele, unspecified; Z79.899 Other long term (current) drug therapy; Z87.891 Personal history of nicotine dependence
CPT/HCPCS: 33208; 36415; 71045; 80048; 80053; 83880; 84443; 84484; 85025; 85610; 85730; 93005; 93306; 99156; 99285; C1779; C1785; C1892; J0690; J1644; J2250; J3010; J3370; J3490; J0360; J1160; J7030; J7040

== ENCOUNTER 2018-08-28 17:14 | Inpatient (IN) | payer MEDICARE ==
[~2018-08-28] VITALS: Ht 152.4 cm; Wt 49.8 kg
[~2018-08-28 17:14] MED LIST changes: -ASPI-621 PO; +ASPI81TA45 PO; +HYDR12.517 PO; -HYDR12.53 PO; +LOSA25TA25 PO; -LOSA25TA5 PO; +RABE20TA18 MT
[2018-08-28] MEDS ORDERED: METOPROLOL 1 MG/ML, 5ML ONE ×3 (18:01→18:31)
[2018-08-28] MEDS: METOPROLOL 1 MG/ML, 5ML IVPush PRN ×3 (18:04→18:34)
[2018-08-28 18:24] LABS: INTERNATIONAL NORMALIZED RATIO 1.05 (0.93-1.1); PROTHROMBIN TIME 11.1 Seconds (9.6-11.5)
[2018-08-28 18:26] LABS: BASOPHILS # (AUTO) 0.02 x10^3/uL (0-0.1); BASOPHILS % (AUTO) 0 % (0-1); EOSINOPHILS # (AUTO) 0.25 x10^3/uL (0-0.4); EOSINOPHILS % (AUTO) 2 % (1-7); LYMPHOCYTES # (AUTO) 1.39 x10^3/uL (1-3.4); LYMPHOCYTES % (AUTO) 12 % (22-44); MD NO; MEAN CORPUSCULAR HEMOGLOBIN 28.5 pg (27.0-34.8); MEAN CORPUSCULAR HGB CONC 32.3 g/dL (32.4-35.8); MEAN CORPUSCULAR VOLUME 88.1 fL (80-100); MEAN PLATELET VOLUME 8.9 fL (7.4-10.4); MONOCYTES # (AUTO) 0.88 x10^3/uL (0.2-0.8); MONOCYTES % (AUTO) 8 % (2-9); NEUTROPHILS # (AUTO) 9.18 x10^3/uL (1.8-6.8); NEUTROPHILS % (AUTO) 78 % (42-75); PLATELET COUNT 469 x10^3/uL (130-400); RED BLOOD COUNT 3.82 x10^6/uL (3.82-5.3); RED CELL DISTRIBUTION WIDTH 15.4 % (9.6-15.2)
[2018-08-28 18:28] LABS: ALBUMIN 3.8 g/dL (3.4-5.0); ANION GAP 12 mmol/L (5-15); CALCIUM 8.6 mg/dL (8.5-10.1); CHLORIDE 111 mmol/L (98-107)
[2018-08-28 18:31] LABS: ALANINE AMINOTRANSFERASE 22 U/L (12-78); ALKALINE PHOSPHATASE 119 U/L (45-117); BILIRUBIN,TOTAL 0.5 mg/dL (0.2-1.0); CREATININE 1.78 mg/dL (0.55-1.02); TOTAL PROTEIN 7.3 g/dL (6.4-8.2)
[2018-08-28 18:50] LABS: MICROSCOPIC AUTO
[2018-08-28 18:52] LABS: CULTURE INDICATED? YES
--- NOTE | 2018-08-28 18:55 | NUR ---
REPORT FROM GEO [facility]. PT JUST MEDICATED. WILL REASSESS BP IN 10 MIN
[2018-08-28] MEDS ORDERED: ENALAPRILAT 1.25 MG/ML, 2ML IV ONE (19:00)
[2018-08-28] MEDS ORDERED: ENALAPRILAT 1.25 MG/ML, 2ML ONE (19:07)
--- NOTE | 2018-08-28 19:13 | NUR ---
PT MEDICATED WITH VASOTEC BECAUSE BP HAS NOT IMPROVED. OTHER VSS. FAMILY AT BEDSIDE.MD NOTIFIED. CALL LIGHT IN REACH
[2018-08-28] MEDS ORDERED: hydrALAzine 20 MG/ML, 1ML IV ONE (19:30)
[2018-08-28] MEDS ORDERED: hydrALAzine 20 MG/ML, 1ML ONE (19:39)
--- NOTE | 2018-08-28 19:53 | NUR ---
cath ua performed. pt tolerated well. pt medicated with hydralazine for bp. BP to be reassessed. call light in reach.
[2018-08-28 20:12] LABS: MICROSCOPIC AUTO
[2018-08-28 20:14] LABS: CULTURE INDICATED? NO
[2018-08-28] MEDS ORDERED: DIPHENOXYLATE/ATROPINE TABLET PO PRN (21:00)
[2018-08-28] MEDS ORDERED: FLUTICASONE NASAL SPRAY 16GM NAS SCH (21:00)
[2018-08-28] MEDS ORDERED: FLUTICASONE NASAL SPRAY 16GM NAS PRN (21:00)
[2018-08-28] MEDS ORDERED: BISACODYL 10 MG SUPP PR PRN (21:00)
[2018-08-28] MEDS ORDERED: POLYETHYLENE GLYCOL 17 GM PACKET PO PRN (21:00)
[2018-08-28] MEDS ORDERED: ACETAMINOPHEN 325 MG TABLET PO PRN (21:00)
[2018-08-28] MEDS ORDERED: ONDANSETRON ODT 4 MG PO PRN (21:00)
[2018-08-28] MEDS ORDERED: FUROSEMIDE 20 MG/2 ML IV ONE (21:00)
[2018-08-28] MEDS ORDERED: hydrALAzine 20 MG/ML, 1ML IV PRN (21:00)
[2018-08-28] MEDS: LOVASTATIN 10 MG TABLET PO SCH (22:13)
[2018-08-28] MEDS: METOPROLOL TARTRATE 25 MG TABLET PO SCH (22:13)
[2018-08-28] MEDS: SODIUM CHLORIDE FLUSH 10ML SYR IVF SCH (22:15)
[2018-08-28] MEDS: HEPARIN 5,000 UNITS/ML, 1ML SQ SCH (22:22)
[2018-08-28 22:39] VITALS: BP_SYST 173; BP_SYST 174; BP_DIAS 70; BP_DIAS 73
[2018-08-28 23:07] VITALS: BP 175/73
[2018-08-29] VITALS (8 sets, daily range): BP systolic 150–179; BP diastolic 65–80
[2018-08-29] MEDS: HEPARIN 5,000 UNITS/ML, 1ML SQ SCH ×3 (05:29→21:04)
[2018-08-29 05:59] LABS: BASOPHILS # (AUTO) 0.16 x10^3/uL (0-0.1); BASOPHILS % (AUTO) 2 % (0-1); EOSINOPHILS # (AUTO) 0.26 x10^3/uL (0-0.4); EOSINOPHILS % (AUTO) 3 % (1-7); LYMPHOCYTES # (AUTO) 1.17 x10^3/uL (1-3.4); LYMPHOCYTES % (AUTO) 15 % (22-44); MD NO; MEAN CORPUSCULAR HEMOGLOBIN 29.2 pg (27.0-34.8); MEAN CORPUSCULAR HGB CONC 33.3 g/dL (32.4-35.8); MEAN CORPUSCULAR VOLUME 87.7 fL (80-100); MEAN PLATELET VOLUME 8.8 fL (7.4-10.4); MONOCYTES # (AUTO) 0.85 x10^3/uL (0.2-0.8); MONOCYTES % (AUTO) 11 % (2-9); NEUTROPHILS # (AUTO) 5.35 x10^3/uL (1.8-6.8); NEUTROPHILS % (AUTO) 69 % (42-75); PLATELET COUNT 375 x10^3/uL (130-400); RED BLOOD COUNT 3.63 x10^6/uL (3.82-5.3); RED CELL DISTRIBUTION WIDTH 16.3 % (9.6-15.2)
[2018-08-29 06:10] LABS: ALBUMIN 3.4 g/dL (3.4-5.0); ANION GAP 11 mmol/L (5-15); CALCIUM 8.6 mg/dL (8.5-10.1); CHLORIDE 110 mmol/L (98-107)
[2018-08-29 06:15] LABS: ALANINE AMINOTRANSFERASE 18 U/L (12-78); ALKALINE PHOSPHATASE 97 U/L (45-117); BILIRUBIN,TOTAL 0.5 mg/dL (0.2-1.0); CREATININE 1.56 mg/dL (0.55-1.02); TOTAL PROTEIN 6.5 g/dL (6.4-8.2)
[2018-08-29] MEDS ORDERED: FUROSEMIDE 20 MG/2 ML IV SCH (07:30)
[2018-08-29] MEDS: SODIUM CHLORIDE FLUSH 10ML SYR IVF SCH ×2 (07:44→21:04)
[2018-08-29] MEDS: PANTOPROZOLE 40MG TABLET PO SCH (09:27)
[2018-08-29] MEDS: METOPROLOL TARTRATE 25 MG TABLET PO SCH ×2 (09:27→21:03)
[2018-08-29] MEDS: SENNA/DOCUSATE TABLET PO SCH (09:27)
[2018-08-29] MEDS: ESTROGENS CONJUGATED 0.625 MG TABLET PO SCH (09:45)
[2018-08-29] MEDS: DIAZEPAM 2 MG TABLET PO SCH (10:08)
[2018-08-29] MEDS ORDERED: FUROSEMIDE 40 MG/4 ML IV SCH (17:00)
[2018-08-29] MEDS: LOVASTATIN 10 MG TABLET PO SCH (21:07)
[2018-08-30 01:27] VITALS: BP 154/70
[2018-08-30] MEDS: HEPARIN 5,000 UNITS/ML, 1ML SQ SCH ×2 (05:59→12:44)
[2018-08-30 06:54] LABS: ALANINE AMINOTRANSFERASE 19 U/L (12-78); ALBUMIN 3.5 g/dL (3.4-5.0); ANION GAP 12 mmol/L (5-15); CALCIUM 8.9 mg/dL (8.5-10.1); CHLORIDE 106 mmol/L (98-107); CREATININE 1.96 mg/dL (0.55-1.02)
[2018-08-30 06:57] LABS: ALKALINE PHOSPHATASE 89 U/L (45-117); BILIRUBIN,TOTAL 0.5 mg/dL (0.2-1.0); TOTAL PROTEIN 6.9 g/dL (6.4-8.2)
[2018-08-30 07:23] VITALS: BP 192/84
[2018-08-30] MEDS: ESTROGENS CONJUGATED 0.625 MG TABLET PO SCH (07:58)
[2018-08-30] MEDS: METOPROLOL TARTRATE 25 MG TABLET PO SCH (07:59)
[2018-08-30] MEDS: SODIUM CHLORIDE FLUSH 10ML SYR IVF SCH (08:00)
[2018-08-30] MEDS: PANTOPROZOLE 40MG TABLET PO SCH (08:00)
[2018-08-30] MEDS: SENNA/DOCUSATE TABLET PO SCH ×2 (08:01→10:32)
[2018-08-30] MEDS: DIAZEPAM 2 MG TABLET PO SCH (08:01)
[2018-08-30] MEDS ORDERED: AMLODIPINE 5 MG TABLET PO SCH (09:00)
[2018-08-30] MEDS ORDERED: HYDR-3343 PO (12:29)
[2018-08-30] MEDS ORDERED: METO25TA35 PO (12:29)
[2018-08-30] MEDS ORDERED: AMLO-150 PO (12:29)
[2018-08-31] MEDS ORDERED: AMLODIPINE 5 MG TABLET PO SCH (09:00)
== END 2018-08-30 13:57 | disposition home or self-care (01) | DRG 682 ==
LOC: ED 19:40 → EDIP 19:41 → 5SO 20:36
PROVIDERS: ADMIT Internal Medicine; ATTEND Internal Medicine
PROC: 0T9B70Z Drainage of Bladder with Drainage Device, Via Natural or Artificial Opening (ICD-10-PCS; principal; 2018-08-28)
DX: N17.9 Acute kidney failure, unspecified (principal); I50.33 Acute on chronic diastolic (congestive) heart failure; I13.0 Hypertensive heart and chronic kidney disease with heart failure and stage 1 through stage 4 chronic kidney disease, or unspecified chronic kidney disease; I16.0 Hypertensive urgency; D64.9 Anemia, unspecified; E78.00 Pure hypercholesterolemia, unspecified; E78.5 Hyperlipidemia, unspecified; F41.1 Generalized anxiety disorder; K21.9 Gastro-esophageal reflux disease without esophagitis; K58.9 Irritable bowel syndrome, unspecified; N18.3 Chronic kidney disease, stage 3 (moderate); R31.29 Other microscopic hematuria; W18.39XA Other fall on same level, initial encounter; Y93.89 Activity, other specified; Y92.89 Other specified places as the place of occurrence of the external cause; Y99.8 Other external cause status; Z66 Do not resuscitate; Z82.49 Family history of ischemic heart disease and other diseases of the circulatory system; Z87.891 Personal history of nicotine dependence; Z90.710 Acquired absence of both cervix and uterus; Z88.2 Allergy status to sulfonamides; D47.3 Essential (hemorrhagic) thrombocythemia
CPT/HCPCS: 36415; 71045; 80053; 81001; 83880; 84443; 85025; 85610; 85730; 87086; 93005; 93306; 96374; 96375; G0378; J1644; J1940; J0360